=== PATIENT | male | born 1960 | race Caucasian/White ===

== ENCOUNTER 2020-12-22 07:58 | Day surgery (SDC) | payer MEDICAID, SELFPAY ==
[~2020-12-22] VITALS: Ht 162.6 cm; Wt 58.1 kg
[2020-12-22] MEDS ORDERED: MIDAZOLAM 5 MG/5 ML VIAL ONE (09:08)
[2020-12-22] MEDS ORDERED: fentaNYL citrate 0.05 MG/ML VIAL ONE (09:08)
[2020-12-22] MEDS ORDERED: LIDOCAINE 2% 100 MG/5 ML UJET TP ONE (09:09)
== END 2020-12-22 10:00 | disposition home or self-care (01) ==
LOC: MDS 07:58 → MFCC 08:01 → MDS 10:00
PROVIDERS: ATTEND Internal Medicine Gastroenterology
DX: R19.7 Diarrhea, unspecified (principal); K21.9 Gastro-esophageal reflux disease without esophagitis; Z20.822 Contact with and (suspected) exposure to COVID-19; Z53.8 Procedure and treatment not carried out for other reasons
CPT/HCPCS: J2250; J3010